=== PATIENT | female | born 2000 | race American Indian/Alaskan Native ===

== ENCOUNTER 2021-03-25 18:57 | Observation (INO) | payer OTHER ==
--- NOTE | 2021-03-25 20:23 | Event Note ---
ED Screening Note Date of service: 03/25/21 Time: 20:20 ED Screening Note: Patient is a 20-year-old -[place] female with a history of chronic anemia due to chronic menometrorrhagia who presents to the ED with complaint of persistent generalized weakness, heavy vaginal bleeding and low H&H levels after being referred from [facility] for further evaluation due to her H&H levels. Patient states that the lab test results presented to the ED from the [facility] were drawn 24 hours ago and at that time her H&H was 6.2 and 23. Patient states that she has also been on her menstrual cycle for the last 5 days. Patient denies dizziness, syncope, abdominal pain, nausea and vomiting, chest pain, shortness of breath, fever, chills, dysuria, urinary frequency and urgency, change in vision or cough. This initial assessment/diagnostic orders/clinical plan/treatment(s) is/are sub ject to change based on patients health status, clinical progression and re- assessment by fellow clinical providers in the ED. Further treatment and workup at subsequent clinical providers discretion. Patient/guardian urged not to elope from the ED as their condition may be serious if not clinically assessed and managed. Initial orders include: CBC, CMP, UA, hCG serum, type and screen
--- NOTE | 2021-03-25 20:38 | Emergency Department Report ---
ED Recheck HPI - General Chief Complaint: Recheck/Abnormal Lab/Rx Stated Complaint: TRANFUSION Time Seen by Provider: 03/25/21 20:36 Source: patient Mode of arrival: Ambulatory Limitations: No Limitations - History of Present Illness Initial Comments: Patient is a 20-year-old female presents emergency room for abnormal labs and anemia. Patient states she had a blood drawn yesterday and it was 6.4. Patient states was a lab results came back she was told to come to the hospital to have a transfusion. Patient is an inmate and states that they checked in the [facility] at the [facility]. Patient is accompanied by 2 police officers. Police officers are at bedside. Patient denies dizziness. Patient denies chest pain. Patient denies shortness of breath. Patient denied lightheadedness. Patient states she has had heavy periods and she is always been anemic. Patient is not taking anything for anemia or iron pills. Patient states that she is on a control to stop her period. Patient states that she has had 2 transfusions in the past. Patient agrees to blood. Patient denies recent travel. Patient denies recent international travel. P atient denies exposure to the novel coronavirus. Patient denies sick contacts. Patient denies fever and chills. Patient denies cough. Patient denies diarrhea. Patient denies coming in contact with anybody with symptoms of the novel coronavirus. Complaint: abnormal lab -: Sudden - Related Data Previous Rx's Medication Instructions Recorded Last Taken Type Iron Fum,Ps/Folic/Bcomp,C No.9 1 each PO BID 30 Days #60 cap 03/26/21 Unknown Rx [Integra Plus Capsule] Allergies Allergy/AdvReac Type Severity Reaction Status Date / Time No Known Allergies Allergy Unverified 03/25/21 20:29 ED Review of Systems ROS: Stated complaint: TRANFUSION Other details as noted in HPI Constitutional: denies: chills, fever Eyes: denies: eye pain, eye discharge, vision change ENT: denies: ear pain, throat pain Respiratory: denies: cough, shortness of breath, wheezing Cardiovascular: denies: chest pain, palpitations Endocrine: no symptoms reported Gastrointestinal: denies: abdominal pain, nausea, diarrhea Genitourinary: denies: urgency, dysuria, discharge Musculoskeletal: denies: back pain, joint swelling, arthralgia Skin: denies: rash, lesions Neurological: denies: headache, weakness, paresthesias Psychiatric: denies: anxiety, depression Hematological/Lymphatic: denies: easy bleeding, easy bruising ED Past Medical Hx - Past Medical History Previous Medical History?: Yes Additional medical history: Anemia - Surgical History Past Surgical History?: No - Family History Family history: no significant - Social History Smoking Status: Never Smoker Substance Use Type: None - Medications Home Medications: Home Medications Medication Instructions Recorded Confirmed Last Taken Type Iron Fum,Ps/Folic/Bcomp,C No.9 1 each PO BID 30 Days #60 cap 03/26/21 Unknown Rx [Integra Plus Capsule] ED Physical Exam - General Limitations: No Limitations General appearance: alert, in no apparent distress - Head Head exam: Present: atraumatic, normocephalic - Eye Eye exam: Present: normal appearance, other (Scleral pallor noted) - ENT ENT exam: Present: mucous membranes moist - Neck Neck exam: Present: normal inspection - Respiratory Respiratory exam: Present: normal lung sounds bilaterally. Absent: respiratory distress - Cardiovascular Cardiovascular Exam: Present: regular rate, normal rhythm. Absent: systolic murmur, diastolic murmur, rubs, gallop - GI/Abdominal GI/Abdominal exam: Present: soft, normal bowel sounds - Extremities Exam Extremities exam: Present: normal inspection - Back Exam Back exam: Present: normal inspection - Neurological Exam Neurological exam: Present: alert, oriented X3 - Psychiatric Psychiatric exam: Present: normal affect, normal mood - Skin Skin exam: Present: warm, dry, intact, normal color. Absent: rash ED Course Vital Signs 03/25/21 03/25/21 03/25/21 20:17 22:06 22:35 Temperature 98.7 F 98.2 F 98.6 F Pulse Rate 80 89 98 H Respiratory 18 24 22 Rate Blood Pressure 118/81 115/75 Blood Pressure 118/77 [Right] O2 Sat by Pulse 100 98 97 Oximetry 03/25/21 03/25/21 03/25/21 22:50 23:20 23:50 Temperature 97.3 F L 98.5 F 98.2 F Pulse Rate 93 H 89 79 Respiratory 13 16 21 Rate Blood Pressure 113/79 110/75 114/74 Blood Pressure [Right] O2 Sat by Pulse 97 98 97 Oximetry 03/26/21 03/26/21 03/26/21 00:20 01:00 01:30 Temperature 98.4 F Pulse Rate 79 75 75 Respiratory 22 19 20 Rate Blood Pressure 114/83 104/77 122/83 Blood Pressure [Right] O2 Sat by Pulse 96 97 97 Oximetry - Reevaluation(s) Reevaluation #1: Patient agrees to have a transfusion. Patient states she would rather not be admitted if possible. 03/25/21 21:15 Reevaluation #2: Patient states she is feeling fine. Patient's vital signs are stable. 03/25/21 23:01 Reevaluation #3: Patient states she is feeling better. Patient states she feels like she has more energy. Patient's vital signs are stable. Patient receiving PRBCs 03/26/21 00:16 Reevaluation #4: Transfusions none. Patient states she is feeling better. Patient's scleral pallor has improved. Patient's vital signs are stable. No reaction noted. Patient have a repeat CBC. 03/26/21 01:17 Reevaluation #5: I discussed all results with patient. I discussed plan of care with patient. Patient agrees with plan of care and admission. Patient to be admitted to the [facility] service. 03/26/21 02:07 - Consultations Consultation #1: I discussed case with Dr. Haskins and Dr. Lorenzo patient be a transfusion in the ER. 03/25/21 21:19 Consultation #2: I discussed the case with Doctor Haskins, [facility]PRES[facility]IVE. Dr Haskins except the patient be admitted to mother-baby. 03/26/21 02:07 ED Recheck MDM - Differential Diagnosis Anemia, blood loss, heavy menstrual period - Medical Decision Making Patient is a 20-year-old female that presents emergency room with complaints of heavy menstrual cycle and anemia. Patient obtained from her local [facility]. Patient found to be severely anemic at 6.4. Patient had a transfusion and increased to 6.9. I then discussed the case with [facility]PRESENTATIVE and the [facility] REPRESENTATIVE accepted the patient for beds about the baby. Patient had another unit of blood ordered prior to admission. Critical care time documented due to the multiple reassessments, prolonged time at the bedside, interpretation of diagnostics and labs. Critical Care Time: Yes Critical care time in (mins) excluding proc time.: 45 Critical care attestation.: If time is entered above; I have spent that time in minutes in the direct care of this critically ill patient, excluding procedure time. Critical Care Time: 45 MINUTES ED Disposition Clinical Impression: Anemia Qualifiers: Anemia type: unspecified type Qualified Code(s): D64.9 - Anemia, unspecified Heavy menstrual period Qualifiers: Menorrhagia type: with regular cycle Qualified Code(s): N92.0 - Excessive and frequent menstruation with regular cycle Disposition: OP ADMIT IP TO THIS HOSP Is pt being admited?: Yes Does the pt Need Aspirin: No Condition: Critical Instructions: Blood Transfusion, Adult, Care After, [id number], Menorrhagia, [id number] Additional Instructions: . Prescriptions: Iron Fum,Ps/Folic/Bcomp,C No.9 [Integra Plus Capsule] 1 each PO BID 30 Days #60 cap Time of Disposition: 02:08
[2021-03-25 20:46] LABS: Basophils % (Auto) 0.5 % (0.0-1.8); Eosinophils % (Auto) 0.8 % (0.0-4.3); Hematocrit 20.2 % (30.3-42.9); Hemoglobin 6.4 gm/dl (10.1-14.3); Lymphocytes # (Auto) 1.5 K/mm3 (1.2-5.4); Lymphocytes % (Auto) 43.6 % (13.4-35.0); Mean Corpuscular HGB Conc 32 % (30-34); Monocytes # (Auto) 0.5 K/mm3 (0.0-0.8); Monocytes % (Auto) 13.9 % (0.0-7.3); Platelet Count 265 K/mm3 (140-440); Red Blood Count 3.02 M/mm3 (3.65-5.03)
[2021-03-25 20:53] LABS: Mean Corpuscular Volume 67 fl (79-97); Red Cell Distribution Width 22.2 % (13.2-15.2)
[2021-03-25 21:02] LABS: Alanine Aminotransferase 12 units/L (7-56); Blood Urea Nitrogen 9 mg/dL (7-17); Calcium 8.2 mg/dL (8.4-10.2); Hemolysis Index 8
[2021-03-25 21:08] LABS: BUN/Creatinine Ratio 18
[2021-03-25] MEDS ORDERED: SODIUM CHLORIDE 0.9% 500 ML 500 ML IV ONE (21:20)
[2021-03-25] MEDS ORDERED: ACETAMINOPHEN 325 MG TAB PO ONE (22:08)
[2021-03-26 01:32] LABS: Hematocrit 21.2 % (30.3-42.9); Hemoglobin 6.9 gm/dl (10.1-14.3); Mean Corpuscular HGB Conc 32 % (30-34); Platelet Count 226 K/mm3 (140-440); Red Blood Count 3.07 M/mm3 (3.65-5.03)
[2021-03-26 01:34] LABS: Mean Corpuscular Volume 69 fl (79-97); Red Cell Distribution Width 24.4 % (13.2-15.2)
[2021-03-26] MEDS ORDERED: SODIUM CHLORIDE 0.9% 500 ML 500 ML IV ONE ×2 (02:08→05:30)
[2021-03-26] MEDS ORDERED: diphenhydrAMINE 50 MG CAP PO NR (05:00)
[2021-03-26 09:09] LABS: Bilirubin,Urine NEG (Negative); Blood,Urine NEG (Negative); Color,Urine Yellow (Yellow); Mucus,Urine 2+ /HPF; Protein,Urine <15 mg/dL mg/dL (Negative); Urobilinogen,Urine < 2.0 mg/dL (<2.0)
[2021-03-26 09:13] VITALS: BP 111/65
--- NOTE | 2021-03-26 09:45 | History and Physical Report ---
History of Present Illness Date of examination: 03/26/21 Date of admission: 03/26/21 02:09 Chief complaint: symptomatic anemia History of present illness: 20 yo with hx of heavy and irregular menses s/p multiple transfusions presenting with dizziness and fatigue, found to have symptomatic anemia. Past History Past Medical History: other (anemia) Past Surgical History: no surgical history Family/Genetic History: none Social history: no significant social history Medications and Allergies Allergies Allergy/AdvReac Type Severity Reaction Status Date / Time No Known Allergies Allergy Unverified 03/25/21 20:29 Home Medications Medication Instructions Recorded Confirmed Last Taken Type Iron Fum,Ps/Folic/Bcomp,C No.9 1 each PO BID 30 Days #60 cap 03/26/21 Unknown Rx [Integra Plus Capsule] Active Meds: Active Medications Diphenhydramine HCl (Diphenhydramine 50 Mg Cap) 50 mg PO ONCE NR Stop: 03/26/21 23:45 Last Admin: 03/26/21 04:55 Dose: 50 mg Documented by: Review of Systems All systems: negative (expect HPI) - Vital Signs Vital signs: Vital Signs Temp Pulse Resp BP Pulse Ox 98.7 F 80 18 118/81 100 03/25/21 20:17 03/25/21 20:17 03/25/21 20:17 03/25/21 20:17 03/25/21 20:17 Temp Pulse Resp BP Pulse Ox 97.9 F 72 18 111/65 96 03/26/21 09:03 03/26/21 09:03 03/26/21 09:03 03/26/21 09:03 03/26/21 08:31 - Physical Exam Cardiovascular: Regular rate Lungs: Positive: Clear to auscultation Abdomen: Positive: normal appearance, normal bowel sounds Results Result Diagrams: 03/26/21 01:25 03/25/21 20:27 Abnormal lab results 03/25/21 03/25/21 03/25/21 Range/Units 20:27 20:27 20:27 WBC 3.5 L (4.5-11.0) K/mm3 RBC 3.02 L (3.65-5.03) M/mm3 Hgb 6.4 L (10.1-14.3) gm/dl Hct 20.2 L (30.3-42.9) % MCV 67 L (79-97) fl MCH 21 L (28-32) pg RDW 22.2 H (13.2-15.2) % Lymph % (Auto) 43.6 H (13.4-35.0) % Dunn % (Auto) 13.9 H (0.0-7.3) % Seg Neutrophils # 1.4 L (1.8-7.7) K/mm3 Sodium 134 L (137-145) mmol/L Potassium 3.5 L (3.6-5.0) mmol/L Creatinine 0.5 L (0.6-1.2) mg/dL Calcium 8.2 L (8.4-10.2) mg/dL Total Protein 10.0 H (6.3-8.2) g/dL Albumin 3.0 L (3.9-5) g/dL Crossmatch See Detail 03/26/21 Range/Units 01:25 WBC 3.0 L (4.5-11.0) K/mm3 RBC 3.07 L (3.65-5.03) M/mm3 Hgb 6.9 L (10.1-14.3) gm/dl Hct 21.2 L (30.3-42.9) % MCV 69 L (79-97) fl MCH 22 L (28-32) pg RDW 24.4 H (13.2-15.2) % Lymph % (Auto) (13.4-35.0) % Dunn % (Auto) (0.0-7.3) % Seg Neutrophils # (1.8-7.7) K/mm3 Sodium (137-145) mmol/L Potassium (3.6-5.0) mmol/L Creatinine (0.6-1.2) mg/dL Calcium (8.4-10.2) mg/dL Total Protein (6.3-8.2) g/dL Albumin (3.9-5) g/dL Crossmatch All other labs normal. Assessment and Plan - Patient Problems (1) Anemia Current Visit: Yes Status: Acute Qualifiers: Anemia type: unspecified type Qualified Code(s): D64.9 - Anemia, unspecified Plan to address problem: symptomatic anemia for 2 units pRBCs --Admit to OBS --Dispo pending improvement of symptoms.
--- NOTE | 2021-03-26 09:48 | Discharge Summary ---
Providers - Providers Date of Admission: 03/26/21 02:09 Date of discharge: 03/26/21 Attending physician: THI TIPTON JR, MD [facility] JOSE ANTONIO Hospitalization Reason for admission: other (symptomatic anemia) Procedure details: s/p 2 units PRBCs Hospital course: Patient admitted for symptomatic anemia, Hgb 6.3. S/p 2 units pRBCs. Discharge home in good condition on 03/26/21. Symptoms resolved. Discharge home on iron. Condition at discharge: Good Disposition: DC-01 TO HOME OR SELFCARE - Discharge Diagnoses (1) Anemia Status: Acute Qualifiers: Anemia type: unspecified type Qualified Code(s): D64.9 - Anemia, unspecified Plan - Discharge Medications Prescriptions: Iron Fum,Ps/Folic/Bcomp,C No.9 [Integra Plus Capsule] 1 each PO BID 30 Days #60 cap - Provider Discharge Summary Activity: routine Diet: routine Instructions: routine Additional instructions: [] Smoking cessation referral if applicable(refer to patient education folder for contact #) [] Refer to [facility] Booklet Call your doctor immediately for: * Fever > 100.5 * Heavy vaginal bleeding ( >1 pad per hour) * Severe persistent headache * Shortness of breath * Reddened, hot, painful area to leg or breast * Drainage or odor from incision. * Keep incision clean and dry at all times and follow doctor's instructions regarding bathing/showering - Follow up plan Follow up: IBRAHIMA DUARTE MD [Primary Care Provider] - 7 Days
== END 2021-03-26 10:50 | disposition home or self-care (01) ==
LOC: ED 18:57 → EEVIPCON 03-26 02:09 → OB 03-26 02:09
PROVIDERS: ADMIT Obstetrics & Gynecology; ATTEND Obstetrics & Gynecology
DX: N92.0 Excessive and frequent menstruation with regular cycle (principal); D50.0 Iron deficiency anemia secondary to blood loss (chronic)
CPT/HCPCS: 36415; 36430; 80053; 81001; 84703; 85025; 85027; 86850; 86900; 86901; 86920; 99291; G0378; J7040; P9016